=== PATIENT | female | born 1945 | race Hispanic/Latino ===

== ENCOUNTER 2022-09-20 14:53 | Outpatient (CLI) | payer MEDICARE, OTHER ==
[2022-09-20 16:38] LABS: Hemoglobin 13.7 g/dL (12.0-15.5); Mean Corpuscular HGB CONC 32.2 g/dL (32.0-36.0); Mean Corpuscular Hemoglobin 31.6 pg (27.0-33.0); Mean Corpuscular Volume 98.2 fl (81.6-98.3); Mean Platelet Volume 11.5 fl (7.4-10.4); Platelet Count 303 10x3/uL (150-450); RBC Distribution Width 12.6 % (11.5-14.5); Red Blood Cell (RBC) Count 4.34 10x6/uL (3.90-5.03); White Blood Cell (WBC) Count 9.6 10x3/uL (3.5-10.5)
[2022-09-20 16:47] LABS: INR-International Normal Ratio 0.9; PTT 25.9 sec (22.0-33.0); Prothrombin Time 9.8 sec (9.5-12.1)
[2022-09-20 16:48] LABS: Anion Gap 17 mmol/L (10-20); BUN (Urea Nitrogen) 21 mg/dL (9.8-20.1); Calc. Creatinine Clearance 0 mL/min (70-130); Calcium 9.3 mg/dL (7.8-10.44); Carbon Dioxide 19 mmol/L (23-31); Chloride 112 mmol/L (98-107); Estimated GFR 58; Glucose 128 mg/dL (83-110); Potassium 4.2 mmol/L (3.5-5.1); Sodium 144 mmol/L (136-145)
[2022-09-20 20:20] LABS: Hemoglobin A1c 6.5 % (4.0-6.0)
== END 2022-09-20 14:54 | disposition home or self-care (01) ==
LOC: CSHLAB 14:53
PROVIDERS: ATTEND Orthopaedic Surgery
DX: Z01.818 Encounter for other preprocedural examination (principal); M17.12 Unilateral primary osteoarthritis, left knee
CPT/HCPCS: 80048; 82306; 83036; 85027; 85610; 85730; 87081; 93005; 93010

== ENCOUNTER 2022-09-25 10:01 | Observation (INO) | payer MEDICARE, MEDICAID ==
[2022-09-24 12:02] VITALS: BMI 28.3
[2022-09-25] MEDS ORDERED: Ketorolac Tromethamine 30 MG/ML VIAL ONE ×3 (11:32→14:39)
[2022-09-25] MEDS ORDERED: Acetaminophen 325 MG TAB ONE (11:32)
[2022-09-25] MEDS ORDERED: Gabapentin 300 MG CAP ONE ×2 (11:33→11:40)
[2022-09-25] MEDS ORDERED: EPINEPHrine 1 MG/ML AMP ONE ×2 (12:46→14:39)
[2022-09-25] MEDS ORDERED: Ropivacaine 0.2% HCl/PF 0 ML ONE (12:47)
[2022-09-25] MEDS ORDERED: Lidocaine 1% w/Epinephrine 1:100K 30 ML VIAL ONE (12:47)
[2022-09-25] MEDS ORDERED: Vancomycin 1 GM VIAL ONE (12:47)
[2022-09-25] MEDS ORDERED: Tranexamic Acid 1,000 MG/10 ML VIAL ONE (12:47)
[2022-09-25] MEDS ORDERED: Neomycin-Polymyxin 1 ML AMP ONE (12:48)
[2022-09-25] MEDS ORDERED: Fentanyl 100 MCG/2 ML VIAL ONE ×2 (13:00→13:16)
[2022-09-25] MEDS ORDERED: Ropivacaine 0.5% HCl/PF (150 MG/30 ML VIAL) ONE (13:00)
[2022-09-25] MEDS ORDERED: Lidocaine 1% PF 5 ML VIAL ONE (13:01)
[2022-09-25] MEDS ORDERED: PROPOFOL 20 ML ONE ×2 (13:16→15:18)
[2022-09-25] MEDS ORDERED: Dexamethasone 20 MG/5 ML VIAL ONE (13:18)
[2022-09-25] MEDS ORDERED: Ondansetron PF 4 MG/2 ML Vial ONE (13:18)
[2022-09-25] MEDS ORDERED: Lidocaine 2% MPF 10 ML AMP (For Epidural Use) ONE (13:20)
[2022-09-25] MEDS ORDERED: Lidocaine 1% MPF 2 ML VIAL ONE (13:20)
[2022-09-25] MEDS ORDERED: CEFAZOLIN 1 GM VIAL ONE (13:28)
[2022-09-25] MEDS ORDERED: Ondansetron PF 4 MG/2 ML Vial IVP PRN (13:43)
[2022-09-25] MEDS ORDERED: traMADol HCl 50 MG TAB PO PRN (13:43)
[2022-09-25] MEDS ORDERED: Zolpidem Tartrate 5 MG TAB PO PRN (13:43)
[2022-09-25] MEDS ORDERED: Acetaminophen 325 MG TAB PO PRN (13:43)
[2022-09-25] MEDS ORDERED: Promethazine HCl 25 MG/ML VIAL IM PRN (13:43)
[2022-09-25] MEDS ORDERED: diphenhydrAMINE 25 MG CAP PO PRN (13:43)
[2022-09-25] MEDS ORDERED: HYDROcodone/Acetaminophen 10/325 mg Tablet PO PRN (13:43)
[2022-09-25] MEDS ORDERED: Glycopyrrolate 0.2 MG/ML 5 ML SYRINGE ONE (13:47)
[2022-09-25] MEDS ORDERED: ePHEDrine Sulfate 50 MG/10 ML VIAL ONE (13:58)
[2022-09-25] MEDS ORDERED: Ropivacaine 0.2% HCl/PF 40 ML ONE (14:39)
[2022-09-25] MEDS: Sodium Chloride 0.9% 1,000 ML IV SCH ×2 (18:17→23:35)
[2022-09-25] MEDS: CEFAZOLIN 2 GM in Sodium Chloride 0.9% 100 ML IVPB SCH (20:42)
[2022-09-25] MEDS: Ketorolac Tromethamine 30 MG/ML VIAL IM SCH ×2 (20:44→20:48)
[2022-09-25] MEDS ORDERED: Aspirin 81 mg Enteric Coated Tablet PO SCH (21:00)
[2022-09-25] MEDS ORDERED: Senokot S 8.6-50 MG TAB PO SCH (21:00)
[2022-09-26 04:23] LABS: Hemoglobin 12.4 g/dL (12.0-15.5); Mean Corpuscular HGB CONC 31.6 g/dL (32.0-36.0); Mean Corpuscular Hemoglobin 31.4 pg (27.0-33.0); Mean Corpuscular Volume 99.2 fl (81.6-98.3); Mean Platelet Volume 10.9 fl (7.4-10.4); Platelet Count 260 10x3/uL (150-450); RBC Distribution Width 12.7 % (11.5-14.5); Red Blood Cell (RBC) Count 3.95 10x6/uL (3.90-5.03)
[2022-09-26] MEDS: CEFAZOLIN 2 GM in Sodium Chloride 0.9% 100 ML IVPB SCH (05:23)
[2022-09-26] MEDS: Ketorolac Tromethamine 30 MG/ML VIAL IM SCH (05:23)
[2022-09-26] MEDS ORDERED: Ferrous Gluconate 324 MG TAB PO SCH (09:00)
[2022-09-26] MEDS ORDERED: Multivitamin W/ Minerals 1 TAB PO SCH (09:00)
[2022-09-26 14:12] VITALS: BP 117/73; TEMP 98.7
== END 2022-09-26 14:19 | disposition home or self-care (01) ==
LOC: CSHSDC 10:01 → CSHTELE 17:14
PROVIDERS: ADMIT Orthopaedic Surgery; ATTEND Orthopaedic Surgery
PROC: 0SRD0JZ Replacement of Left Knee Joint with Synthetic Substitute, Open Approach (ICD-10-PCS; principal; 2022-09-25)
DX: M17.12 Unilateral primary osteoarthritis, left knee (principal); E11.9 Type 2 diabetes mellitus without complications; E78.00 Pure hypercholesterolemia, unspecified; Z79.84 Long term (current) use of oral hypoglycemic drugs
CPT/HCPCS: 27447; 73560; 82962; 85027; 96374; 96375; 96376; 97110; 97116; 97530; A6198; C1776 ×3; G0378 ×2; 36415; 36416; J0171; J0690; J0735; J1100; J1885; J2405; J2704; J2795; J3010; J3370; J3490; J7050